=== PATIENT | female | born 1975 | race Caucasian/White ===

== ENCOUNTER 2025-09-01 17:05 | Inpatient (IN) | payer OTHER ==
[~2025-09-01] VITALS: Ht 167.6 cm; Wt 57.6 kg
[2025-09-01 17:09] VITALS: O2SAT 100
[2025-09-01 18:57] LABS: BASOPHILS % 2.4 % (0.0-2.0); EOSINOPHILS % 1.1 % (0.0-5.0); LYMPHOCYTES % 36.3 % (20.0-50.0); MEAN PLATELET VOLUME 8.1 fl (7.4-10.4); MONOCYTES % 6.8 % (2.0-8.0); NEUTROPHILS % 53.4 % (40.0-76.0); PLATELET 334 x1000/uL (130-400); RED BLOOD CELL COUNT 3.23 mill/uL (4.2-5.4); RED CELL DISTRIBUTION WIDTH 18.4 % (11.6-14.6)
[2025-09-01 19:05] LABS: INR 1.0
[2025-09-01 19:10] LABS: CREATININE 0.6 mg/dL (0.6-1.0); UREA NITROGEN BLOOD 6 mg/dL (9-23)
[2025-09-01 19:14] LABS: CLARITY URINE CLEAR (CLEAR); COLOR URINE YELLOW (YELLOW); GLUCOSE URINE NEGATIVE (NEGATIVE); KETONES URINE NEGATIVE (NEGATIVE); LEUKOCYTE ESTERASE URINE 2+ (NEGATIVE); NITRITE URINE NEGATIVE (NEGATIVE); OCCULT BLOOD URINE NEGATIVE (NEGATIVE); PH URINE 6.5 (4.5-8.0); PROTEIN URINE NEGATIVE (NEGATIVE); SPECIFIC GRAVITY URINE 1.005 (1.005-1.030); UROBILINOGEN URINE 0.2 E.U./dL (0.2-1.0)
[2025-09-01 19:18] LABS: ADD RBC MORPHOLOGY YES; HEMATOCRIT. 20.4 % (36.0-48.0); HEMOGLOBIN. 5.8 g/dL (12.0-16.0)
[2025-09-01 19:19] LABS: PLATELET ESTIMATE NORMAL
[2025-09-01] MEDS ORDERED: MAGNESIUM/ALUMINUM HYDROXIDE/SIMETHICONE 30ML UDC PO PRN (19:45)
[2025-09-01] MEDS ORDERED: DOCUSATE SODIUM 100MG CAPSULE PO PRN (19:45)
[2025-09-01] MEDS ORDERED: IPRATROPIUM/ALBUTEROL 0.5-3(2.5)MG/3ML NEB HHN PRN (19:45)
[2025-09-01] MEDS ORDERED: GUAIFENESIN 200MG/10ML SUGAR FREE UDC PO PRN (19:45)
[2025-09-01] MEDS ORDERED: ONDANSETRON HCL 4MG/2ML INJ IV PRN (19:45)
[2025-09-01 19:48] LABS: BACTERIA URINE 1+; RBC URINE 0-2 /hpf (0-2); SQUAMOUS EPITHELIAL CELL URINE 1+ /lpf (RARE/1+)
[2025-09-01] MEDS ORDERED: FERROUS SULFATE 325MG TABLET PO SCH (20:00)
[2025-09-01 21:45] VITALS: BP 105/57; PULSE 63; RESP 17; TEMP 36.4; O2SAT 100
[2025-09-01 22:26] VITALS: BP 105/57; PULSE 63; RESP 17; TEMP 36.4736
[2025-09-01 22:30] VITALS: BP 107/60; PULSE 61; RESP 17; TEMP 36.44736
[2025-09-01 23:30] VITALS: BP 102/55; PULSE 61; RESP 18; TEMP 36.3918
[2025-09-02] VITALS: BP 105/58; PULSE 60; RESP 16; TEMP 36.4; O2SAT 100
[2025-09-02 00:30] VITALS: BP 97/55; PULSE 60; RESP 16; TEMP 36.44736
[2025-09-02 04:00] VITALS: BP 106/57; PULSE 62; RESP 16; TEMP 36.4; O2SAT 99
[2025-09-02] MEDS ORDERED: DEXTROSE 50% WATER 50ML SYRINGE IV PRN (05:45)
[2025-09-02 06:11] LABS: BASOPHILS % 3.2 % (0.0-2.0); EOSINOPHILS % 1.6 % (0.0-5.0); HEMATOCRIT. 24.0 % (36.0-48.0); HEMOGLOBIN. 7.1 g/dL (12.0-16.0); LYMPHOCYTES % 38.6 % (20.0-50.0); MEAN PLATELET VOLUME 7.8 fl (7.4-10.4); MONOCYTES % 9.0 % (2.0-8.0); NEUTROPHILS % 47.6 % (40.0-76.0); PLATELET 287 x1000/uL (130-400); RED BLOOD CELL COUNT 3.67 mill/uL (4.2-5.4); RED CELL DISTRIBUTION WIDTH 21.9 % (11.6-14.6)
[2025-09-02 06:20] LABS: CREATININE 0.6 mg/dL (0.6-1.0); UREA NITROGEN BLOOD < 5 mg/dL (9-23)
[2025-09-02 06:22] LABS: ADD RBC MORPHOLOGY NO
[2025-09-02 06:24] LABS: VITAMIN B12 SERUM 425 pg/mL (211-911)
[2025-09-02] MEDS: BLOOD SUGAR DIAGNOSTIC STRIP TEST SCH (06:45)
[2025-09-02] MEDS ORDERED: NON FORMULARY MED XX SCH (07:00)
[2025-09-02] MEDS: FERROUS SULFATE 325MG TABLET PO SCH (07:30)
[2025-09-02 08:00] VITALS: BP 111/62; PULSE 63; RESP 19; TEMP 36.7; O2SAT 100
[2025-09-02] MEDS: IRON SUCROSE COMPLEX 100 MG/5 ML ML IV SCH (08:47)
[2025-09-02] MEDS ORDERED: FERR-63 PO (10:38)
[2025-09-02 10:53] VITALS: BP 126/64; PULSE 74; RESP 18; TEMP 97.9
[2025-09-02 12:05] VITALS: BP 119/64; PULSE 75; RESP 20; TEMP 36.7; O2SAT 99
[2025-09-03 09:07] LABS: FOLATE HEMATOCRIT 24.6 % (34.0-46.6)
[2025-09-03 13:12] LABS: FOLATE HEMOLYSATE 390.0 ng/mL (Not Estab.); FOLATE RBC 1585 ng/mL (>498)
== END 2025-09-02 13:31 | disposition home or self-care (01) | DRG 812 ==
LOC: ER 17:05 → EDBEDREQTM 19:28 → EDBEDREQSVC 19:28 → EDBEDREQ 19:28 → ENRESERV 20:35 → 8EST 21:43
PROVIDERS: ADMIT Internal Medicine; ATTEND Internal Medicine
PROC: 30233N1 Transfusion of Nonautologous Red Blood Cells into Peripheral Vein, Percutaneous Approach (ICD-10-PCS; principal; 2025-09-01)
DX: D50.9 Iron deficiency anemia, unspecified (principal); D25.9 Leiomyoma of uterus, unspecified; Z98.51 Tubal ligation status
CPT/HCPCS: 36415; 80048; 81003; 82607; 82728; 82747; 82962; 83540; 83550; 85014; 85025; 86850; 86900; 86920; 99291; A4606; P9016